=== PATIENT | male | born 1970 | race Caucasian/White ===

== ENCOUNTER 2024-03-29 21:02 | Emergency (ER) | payer OTHER ==
[2024-03-29] MEDS: Fluorescein 1 MG Ophth Strip EYEBOTH ONE (21:29)
[2024-03-29] MEDS ORDERED: Sodium Chloride 0.9% 1,000 ML ONE (22:44)
[2024-03-29] MEDS: Dexamethasone/Tobramycin 0.1-0.3% Ophth Susp 5 ML Bottle EYERT SCH (22:54)
== END 2024-03-29 23:24 | disposition home or self-care (01) ==
LOC: JD.ED 21:02
DX: S05.01XA Injury of conjunctiva and corneal abrasion without foreign body, right eye, initial encounter (principal); W44.8XXA Other foreign body entering into or through a natural orifice, initial encounter; Y93.89 Activity, other specified
CPT/HCPCS: 99283; A9270